=== PATIENT | female | born 1995 | race Caucasian/White ===

== ENCOUNTER 2025-09-24 20:56 | Emergency (ER) | payer BC, OTHER ==
[~2025-09-24] VITALS: Ht 165.1 cm; Wt 97.1 kg
[2025-09-24 21:02] VITALS: BP 117/88; PULSE 77; RESP 16; TEMP 98.7; O2SAT 99
== END 2025-09-24 23:14 | disposition left against medical advice (07) ==
LOC: ER 20:56
DX: M79.645 Pain in left finger(s) (principal)